=== PATIENT | female | born 1975 ===

== ENCOUNTER 2025-07-24 08:19 | Inpatient (IN) | payer OTHER ==
[~2025-07-24] VITALS: Ht 149.9 cm; Wt 56.0 kg
[2025-07-24] MEDS ORDERED: FLU VACC TS2025-26(6MOS UP)/PF 45 MCG/0.5 ML SYRINGE IM ONE (10:00)
[2025-07-24] MEDS ORDERED: FLU VACC TS2025-26(6MOS UP)/PF 45 MCG/0.5 ML SYRINGE IM SCH (10:00)
[2025-07-24] MEDS ORDERED: Haloperidol Lactate Inj. 5 MG/ML Injection IM PRN ×2 (10:00→13:50)
[2025-07-24] MEDS ORDERED: Aluminum Hydroxide 320MG/5ML 473 ML PO PRN ×2 (10:05→13:50)
[2025-07-24] MEDS ORDERED: LORazepam 2 MG/ML 1ML Injection IM PRN ×2 (10:05→13:50)
[2025-07-24] MEDS ORDERED: DiphenhydrAMINE HCl 50 MG/ML 1ML Vial IM PRN ×2 (10:05→13:50)
[2025-07-24] MEDS ORDERED: Ondansetron 4 MG SoluTab MM PRN ×2 (10:10→13:50)
[2025-07-24] MEDS ORDERED: Polyethylene Glycol 3350 17 gm PO PRN ×2 (10:10→13:50)
[2025-07-24 14:00] VITALS: BP 102/71
[2025-07-24] MEDS ORDERED: LAMO100 PO (14:56)
[2025-07-24] MEDS ORDERED: TRAZ50 PO (14:57)
[2025-07-24] MEDS ORDERED: GABA300 PO (14:57)
[2025-07-24] MEDS ORDERED: CLON.5 PO (14:59)
[2025-07-24] MEDS ORDERED: ACYC400 PO (15:01)
[2025-07-24] MEDS ORDERED: CYCLOBENZAPRINE5 MG PO (15:02)
[2025-07-24] MEDS ORDERED: Cyclobenzaprine5 MG PO (15:02)
[2025-07-24] MEDS ORDERED: ZYRTEC10 M2 PO (15:03)
[2025-07-24] MEDS ORDERED: Flonase 0.05% N16 GM (15:03)
[2025-07-24] MEDS ORDERED: MOUNJARO7.5 MG/0.5 SC (15:06)
[2025-07-24 15:08] VITALS: BP 102/71
--- NOTE | 2025-07-24 17:12 | NUR ---
SHIFT SUMMARY PT ADMITTED FROM [facility] FOR MDD/SI. PT ORIENTED TO UNIT AND SKIN CHECK COMPLETED WITH ARNOLDO BYRNE. PT REPORTS COMING INTO THE ER BECAUSE SHE HAS BEEN MORE DEPRESSED AND EXPERIENCING OVER STIMULATION, INCREASED ANGER, SI. SHE SAID THAT SHE BECAME ANGRY/OVERSTIMULATED AT HOME AND BROKE A LOT OF HER DISHES, WHICH SCARED HER CHILDREN. SHE SAYS THAT SHE IS ALSO EXPERIENCING FINANCIAL STRESSORS AND IF IT WASN'T FOR HER CHILDREN, SHE WOULD KILL HERSELF. PT IS IN THE PROCESS OF LOOKING FOR A DIFFERENT JOB AND IS VERY CONCERNED ABOUT MISSING COMMUNICATION WITH A POTENTIAL EMPLOYER. 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 SHE ALSO USES THC AND KETAMINE REGULARLY FOR PAIN/ANXIETY. SHE HAS AN APPROVED SPORTS BRA WITH HER AND A PAPER BACK BOOK. PT DECLINES TO SIGN DECLARATION OF MENTAL HEALTH TREATMENT AT THIS TIME BECAUSE SHE WOULD LIKE TO LEARN MORE ABOUT IT BEFORE SIGNING. SHE IS CURRENTLY RESTING IN HER ROOM AND IS MONITORED Q15 FOR SAFETY AND WELLNESS.
[2025-07-24 20:47] VITALS: BP 146/87
--- NOTE | 2025-07-25 02:57 | NUR ---
Patient states she has not taken her Mounjaro injection for several weeks and does not want it this week as her appetite has been significantly less and she's still losing weight. please be aware.
--- NOTE | 2025-07-25 04:48 | NUR ---
Patient is alert and oriented times four. She denied SI,HI and AVTH during evening assessment. Affect is constricted. She is very worried about missing an opportunity [facility]. She had a 2nd interview last week and feels she did quite well. She is hoping for an early discharge so that she might not miss that potential contact. She was out in the milieu early in the shift, and had snack time with her peers before going to bed. Will continiue close monitoring every 15 minutes for safety and comfort.
[2025-07-25 08:09] LABS: CHOL/HDL RATIO 3.6; Cholesterol 222 mg/dL (50-200); HDL Cholesterol 61 mg/dL (>39); LDL/HDL RATIO 2.4; Low Density Lipoprotein Chol 148 mg/dL (0-110); Triglycerides 66 mg/dL (30-160); Very Low Density Lipoprot Chol 13 mg/dL (6-32)
--- NOTE | 2025-07-25 08:30 | NUR ---
NURSE NOTE PT STATES TO THIS RN THAT SHE IS STILL HAVING SIGNIFICANT SI. SHE DENIES A HX OF ATTEMPTS TO HARM SELF BUT STATES SHE WAS RECENTLY IN HER ROOM ATTEMPTING TO CUT HERSELF WITH HER PATIENT PEN, TOOTHPASTE CORNER, AND ANYTHING SHE FELT WAS FIRM ENOUGH TO CUT. ON INSPECTION OF HER ARMS THE ATTEMPTS DID NOT CUT THROUGH HER SKIN. PT ROOM WAS MITIGATED AND ALL HYGIENE SUPPLIES WERE PLACED IN A BAG AND KEPT BEHIND NURSES STATION. ALL PENS WERE REMOVED FROM THE ROOM. PT WAS PLACED ON A 1:1 IN ARMS LENGTH. WAS NOTIFIED AND V/O OBTAINED. PT EDUCATED ON POLICY AND SHE STATES UNDERSTANDING. SHE BECAME TEARFUL BUT REMAINED CALM AND COOPERATIVE. WILL CONTINUE CLOSE OBSERVATION.
[2025-07-25] MEDS ORDERED: Fluticasone 0.05% Nasal Spray SCH (09:00)
[2025-07-25] MEDS ORDERED: Multivitamins 1 Tab PO SCH ×2 (09:00)
--- NOTE | 2025-07-25 17:02 | NUR ---
SHIFT SUMMARY PT ADMITS TO THIS RN ABOUT SI ATTEMPTS MADE WITH VARIOUS OBJECTS IN HER ROOM. SEE EARLIER NOTE. AFTER MITIGATION AND 1:1 WAS COMPLETED PT CALMED DOWN. THIS RN NOTIFIED HER FRIEND JASMEET, PER PT REQUEST, TO SET UP A VISITATION. PT WAS CALM THE REST OF THE SHIFT. SHE ATTENDED GROUPS AND WAS COMPLIANT WITH ALL MEDICATIONS. SHE C/O FEELING IF SHE IS GOING TO GET A HERPES OUTBREAK AND WAS GIVEN ACYCLOVIR X2 AND WILL NEED TO BE ON A CONSISTANT TID DOSING UNTIL PT STATES SHE IS NO LONGER HAVING SYMPTOMS. MASS=8. PT HAD PRN TYLENOL X2 FOR CHRONIC PAIN. SHE WAS VISITED BY HER DAUGHTER AND HER FRIEND JASMEET, ON SEPERATE VISITING TIMES.
[2025-07-25 21:20] VITALS: BP 114/69
--- NOTE | 2025-07-26 04:27 | NUR ---
SHIFT SUMMARY AT BEGINNING OF SHIFT PATIENT UP IN [place] WATCHING TV. PATIENT VERBALIZED FEELING FRUSTRATED AND WANTING TO GO HOME TOMORROW. "I'M NOT LEARNING ANYTHING NEW HERE" VERBALIZED THAT SHE IS WANTING TO START A KETAMINE THERAPY PROGRAM AT HOME. PATIENT FRUSTRATED THAT SHE CAN'T KEEP HER CHAPSTICK, EXPLAINED THAT DUE TO HER ATTEMPTING TO CUT HERSELF EARLIER IN THE DAY WE WILL CONTINUE TO KEEP HER HYGIENE BAG AT THE NURSES DESK. PATIENT DENIES SI, HI, OR AVTH AT THIS TIME. AFTER ASSESSMENT COMPLETE PATIENT RETURNED TO HER ROOM AND WAS IN BED READING A BOOK. PATIENT C/O KELLOGG 4/10 "FROM CRYING" IBUPROFEN GIVEN WITH GOOD RESULTS. TRAZODONE GIVEN FOR SLEEP AID. PATIENT APPEARS TO BE SLEEPING WELL T/O NIGHT RESP EVEN AND UNLABORED. CONTINUE TO MONITOR Q15MIN
[2025-07-26] MEDS ORDERED: Misc. Injectable SC SCH (09:00)
[2025-07-26] MEDS ORDERED: Clobetasol Prop 0.05% Cream 15 gm TOP SCH ×2 (15:00→21:00)
--- NOTE | 2025-07-26 17:33 | NUR ---
NURSE NOTE CATY WAS COMPLIANT WITH ALL MEDICATIONS THIS SHIFT. SHE DENIES SI/HI/AVTH. SHE ATTENDS GROUPS AND ALSO SPENT A LONGER AMOUNT OF TIME WITH CHERISE MCHUGH. SHE DID C/O VAGINAL TENDERNESS D/T HER PREEXISTING CONDITION OF LICHEN SCLEROSUS THAT CAUSES VAGINAL TEARS AND PAIN, SHE REQUESTED CLOBETASOL CREAM. A CONSULT WAS PLACED TO HOSPITALIST AND HOSPITALIST ORDERED THE CREAM, SEE ORDER. PT ALSO C/O "MENSTRUAL RAGE" TO THE HOSPITALIST AND WAS WANTING SOME WELLBUTRIN. NO ORDER WAS PLACED FOR THIS BY THE HOSPITALIST D/T PT HAS A PSYCHIATRIST ATTENDING HER. PT HAS CONTINUED TO RECIEVE PRN ACYCLOVIR FOR C/O OUTBREAK SYMPTOMS. SHE WILL ALSO BE STARTING B-6 TOMORROW MORNING. SHE WAS GIVEN HER PRIVILEDGES BACK TO HAVE HER TOILETRIES WITH THE VERBALIZATION OF SAFETY AND TO NOT USE THEM A CUTTING TOOL. AT THIS TIME SHE WAS INFORMED THAT IF SHE CONTINUES TO FOLLOW THE EXPECTATIONS OF THE UNIT AND TREATMENT PLAN, SHE HAS A TENTATIVE D/C PLAN FOR 07/28/2025. PT BECAME TEARFUL AFTER HEARING THIS, WENT TO HER ROOM. SHE HAD A CALL WITH HER MOTHER IN THE EVENING AND SEEMED PLEASED WITH THIS.
[2025-07-26 19:32] VITALS: BP 136/88
--- NOTE | 2025-07-27 04:51 | NUR ---
SHIFT SUMMARY PATIENT IN BED READING BOOK AT BEGINNING OF SHIFT. DENIES SI, HI, OR AVTH. UP FOR SNACK THEN BACK TO BED TO READ. COOPERATIVE WITH MEDICATIONS, BUT VERBALIZED THAT SHE IS WANTING TO TALK TO DOCTOR ABOUT CHANGING FROM LAMICTAL TO WELLBUTRIN FOR HER "MENSTRUAL RAGE". TRAZODONE GIVEN FOR SLEEP, ZOVIRAX GIVEN FOR VAGINAL HERPES. PATIENT APPEARS TO BE SLEEPING WELL T/O NIGHT, RESP EVEN AND UNLABORED. CONTINUE TO MONITOR Q15MIN
[2025-07-27 07:23] VITALS: BP 108/80
[2025-07-27] MEDS ORDERED: BuPROPion HCl SR 100 MG TabCR PO SCH (10:00)
[2025-07-27] MEDS ORDERED: Phenyleph/Mineral Oil/Petrolat 1 APPLIC/57 GM Tube PR PRN (10:40)
--- NOTE | 2025-07-27 17:02 | NUR ---
SHIFT SUMMARY PT DENIES SI, HI, AVTH. PT C/O PAIN/REDNESS IN L MIDDLE FINGER, BACTRACIN AND BANDAID GIVEN. REDNESS NOTED W/ MINIMAL SWELLING. PT STATES PAIN HAS REDUCED AFTER SOAKING FINGER/OINTMENT APPLIED. PT ALSO COMPLAINED OF HEMMRHOIDS W/ PREP H ORDERED. NO OTHER ACUTE EVENTS TODAY. PT HAS BEEN IN GROUPS, AND IS NOW CURRENTLY IN DAY ROOM WATCHING MOVIE W/ PEERS.
[2025-07-27 19:37] VITALS: BP 130/79
--- NOTE | 2025-07-28 04:52 | NUR ---
SHIFT SUMMARY: PATIENT WAS READING HER BOOK IN HER ROOM AND IN THE SENSORY ROOM AT THE BEGINNING OF THE SHIFT. SHE WAS ABLE TO INTERACT WELL IN FITTING SUPERVISOR, ANSWERING WITH LOGICAL AND LINEAR SENTENCES. SHE STATED, "TODAY WAS LIKE A ROLLER COASTER, WITH A LOT OF UPS AND DOWNS, BUT THANKFULLY, IT ENDED ON A HIGH NOTE." SHE IS CONCERNED ABOUT HER DISCHARGE, PRESUMABLY TAKING PLACE ON 07/28. SHE DENIED SUICIDAL IDEATION, THOUGHTS OF SELF HARMING, OR A/V/T HALLUCINATIONS. SHE C/O KELLOGG 01/02, AND REQUESTED TYLENOL, WHICH WAS EFFECTIVE. SHE DID NOT PARTICIPATE IN SNACK OR WRAP UP GROUP, CHOOSING TO READ IN HER BOOK. SHE WAS COMPLIANT WITH EVENING MEDICATIONS, AND REQUESTED TRAZODONE AND ACYCLOVIR, WHICH WERE GIVEN WITH GOOD EFFECT. SHE WENT TO BED SOON AFTER TAKING MEDICATION, AND WAS READING FOR A TIME, THEN RESTING WITH EYES CLOSED AND RESPIRATIONS CONFIRMED FOR THE REMAINDER OF THE SHIFT. CONTINUING TO MONITOR FOR SAFETY WITH Q15 MINUTE CHECKS.
--- NOTE | 2025-07-28 08:25 | NUR ---
INPORTANT DISCHARGE INFORMATION PATIENT TO BE DISCHARGED TODAY. ONE OF HER FRIENDS "SKIP" WILL BE PICKING HER UP TODAY AROUND 1:15PM. HE WILL DRIVE HER BACK TO HER RESIDENCE. ALL PARTIES VERBALIZE AN UNDERSTANDING. FOLLOW UP WITH [facility] AT THE [facility]. CALL PLACED FOR SCHEDULING. THEY WILL CALL PATIENT BACK AFTER 1PM WITH CONFIRMED APPOINTMENT . PHARMACY: [facility] [place] FAX NUMBER RESOURCES: PATIENT REQUESTED K[facility]INE THERAPY AVAILABILITY IN THE [place] AREA
[2025-07-28 08:43] VITALS: BP 129/85
--- NOTE | 2025-07-28 12:06 | NUR ---
SHIFT ASSESSMENT: PT WAS WALKING IN THE [place] AT THE BEGINNING OF SHIFT. "I CAN ONLY LAY IN BED FOR SO LONG." SHE DENIED SI, HI AND AVH. PT REPORTED ANXITY OF 4/10w AND PAIN TO HER LEFT MIDDLE FINGER, LEFT ELBOW AND BOTH SHOULDERS AND RATED THE PAIN 5/10w. SHE WAS GIVEN ADVIL 600MG WHICH WAS EFFECTIVE IN LOWERNG HER PAIN TO 3/10w. PT'S AFFECT WAS EUTHYMIC AND SHE DESCRIBED HER MOOD "PRETTY OPTIMISTIC." HER GOAL FOR TODAY AND AFTER DISCHARGE IS, "TO MEND RELATIONSHIPS." PT SOAKED HER FINGER AND APPLIED BACITRACINA AND A BANDAID. PT REQUESTED A WORK RELEASE PAPERWORK WHICH WAS PROVIDED FOR HER.
--- NOTE | 2025-07-28 14:16 | NUR ---
DISCHARGE NOTE: 13:30 PT WAS DISCHARGED WITH ALL OF HER BELONGINGS AND PRINTED DISCHARGE INSTRUCTIONS. PT REPORTED READINESS FOR DISCHARGE. SHE ENDORSED GOALS OF, "I HAVE RELATIONSHIPS TO MEND." PT WAS VERY PLEASANT AND COOPERATIVE WITH CARE. HER FRIEND CAME TO GET HER AND TRANSPORT HER TO HER HOME.
== END 2025-07-28 13:30 | disposition home or self-care (01) | DRG 885 ==
LOC: BHU 08:19
PROVIDERS: ADMIT Psychiatry & Neurology Psychiatry
DX: F32.81 Premenstrual dysphoric disorder (principal); R45.851 Suicidal ideations; F43.25 Adjustment disorder with mixed disturbance of emotions and conduct; M79.7 Fibromyalgia; N90.4 Leukoplakia of vulva; I73.00 Raynaud's syndrome without gangrene; F41.9 Anxiety disorder, unspecified; F42.9 Obsessive-compulsive disorder, unspecified; F32.A Depression, unspecified; F19.90 Other psychoactive substance use, unspecified, uncomplicated; A60.04 Herpesviral vulvovaginitis; Z88.5 Allergy status to narcotic agent; Z79.899 Other long term (current) drug therapy
CPT/HCPCS: 36415; 80061; 83036; A9270